=== PATIENT | male | born 1985 | race Caucasian/White ===

== ENCOUNTER 2022-08-11 14:31 | Emergency (ER) | payer SELFPAY ==
[~2022-08-11] VITALS: Ht 154.9 cm; Wt 78.0 kg
[2022-08-11 14:42] VITALS: BP 158/90
[2022-08-11] MEDS ORDERED: LIDOCAINE MPF 1% 5 ML ONE (15:19)
[2022-08-11] MEDS ORDERED: LIDOCAINE 1% 500 MG/ 50 ML VIAL INJ ONE (15:35)
--- NOTE | 2022-08-11 15:36 | NUR ---
Dr. Fink evaluating patient at bedside.
--- NOTE | 2022-08-11 15:39 | NUR ---
36 y/o male bib self with c/o right lower finn laceration x 1 hour ago. Per patient, he was using a saw when it slipped and he cut himself. Patient is unsure of his last Tetanus. Patient took Aleve prior to arrival. Scant bleeding noted to laceration. Medical History: Denies NKDA
[2022-08-11] MEDS ORDERED: ACET-10509 PO (16:09)
[2022-08-11 16:40] VITALS: BP 126/74
--- NOTE | 2022-08-11 16:40 | NUR ---
Patient discharged with v/s stable. Written and verbal after care instructions given. Patient alert, oriented and verbalized understanding of instructions. Ambulatory with steady gait. All questions addressed prior to discharge. ID band removed. Patient advised to follow up with PMD. Rx of Acetaminophen given. Opportunity to ask questions provided and answered.
--- NOTE | 2022-08-11 16:41 | NUR ---
The patient's care was reviewed and supervised by Aarti Boyer RN, RN.
== END 2022-08-11 16:40 | disposition home or self-care (01) ==
LOC: MED 14:31
DX: S81.811A Laceration without foreign body, right lower leg, initial encounter (principal); W31.2XXA Contact with powered woodworking and forming machines, initial encounter; Y93.89 Activity, other specified; Y92.89 Other specified places as the place of occurrence of the external cause; Y99.8 Other external cause status
CPT/HCPCS: 12002; 90471; 90715; 99283; J2001

== ENCOUNTER 2022-08-18 10:42 | Emergency (ER) | payer MEDICAID ==
[~2022-08-18] VITALS: Ht 164.1 cm; Wt 76.4 kg
[~2022-08-18 10:42] MED LIST: ACET-10509 PO
[2022-08-18 10:44] VITALS: BP 131/70
--- NOTE | 2022-08-18 10:50 | NUR ---
PT AMB TO BED 12.
--- NOTE | 2022-08-18 11:00 | NUR ---
36 Y/O MALE BIB SELF FOR SUTURE REMOVAL. SUTURE PLACED ON RIGHT ANTERIOR ZHENG 7 DAYS AGO. NO REDNESS NO SWELLING NOTED. PT DENIES ANY FEVERS, [facility]ILLS NKA PMH: DENIES
--- NOTE | 2022-08-18 11:00 | NUR ---
DR TRAYLOR AT BEDSIDE FOR SUTURE REMOVAL
--- NOTE | 2022-08-18 11:12 | NUR ---
Patient discharged with v/s stable. Written and verbal after care instructions given. Patient verbalized understanding. Ambulatory with steady gait. All questions addressed prior to discharge. Advised to follow up with PMD.
== END 2022-08-18 11:12 | disposition home or self-care (01) ==
LOC: MED 10:42
DX: S89.91XD Unspecified injury of right lower leg, subsequent encounter (principal); Z48.02 Encounter for removal of sutures; X58.XXXD Exposure to other specified factors, subsequent encounter
CPT/HCPCS: 99281